=== PATIENT | male | born 1985 | race Two or more races ===

== ENCOUNTER 2016-06-14 05:36 | Day surgery (SDC) | payer OTHER ==
[2016-06-05 15:29] VITALS: BMI 28.3
--- NOTE | 2016-06-14 09:19 | HP ---
[facility]ellite [facility] - Chief Complaint Chief Complaint: left knee pain - Past Medical History Allergies/Adverse Reactions: Allergies Allergy/AdvReac Type Severity Reaction Status Date / Time No Known Allergies Allergy Verified 06/14/16 09:07 - Current Medications Current Medications: Home Medications Medication Instructions Recorded Ibuprofen [Motrin -] 400 mg PO PRN PRN 06/14/16 Oxycodone HCl/Acetaminophen 1 - 2 tab PO Q6H #50 tab MDD 8 06/14/16 [Percocet 5-325 mg Tablet -] Satellite Physical Exam - Physical Examination Vital Signs: Vital Signs Period Temp Pulse Resp BP Sys/Ramirez Pulse Ox Last 24 Hr 98.0 F 66 20 110/68 99 General Appearance: Well Nourished, Well Developed, Alert & Oriented x3 ENT: Clear Lung: Normal air movement Heart: Regular rate & rhythm Extremities: Other (left knee- +swelling,+ ttp, decr rom,nvi) Neurological: Intact, Alert, Oriented Satellite Impression/Plan - Impression/Plan Impression: left knee internal derangement Operative Procedure: left knee arthroscopy Date to be Performed: 06/14/16
[2016-06-14] MEDS ORDERED: LIDOCAINE 1%/EPI 1:100000 (50 ML MULTI DOSE VIAL) ONE (10:58)
[2016-06-14] MEDS ORDERED: BUPIVACAINE HCL/PF 0.5% (5MG/ML) 10 ML VIAL ONE (10:58)
[2016-06-14] MEDS ORDERED: LIDOCAINE HCL/PF 2% SDV 5ML VIAL ONE (11:06)
[2016-06-14] MEDS ORDERED: MIDAZOLAM HCL 2 MG/2 ML SINGLE DOSE VIAL ONE ×2 (11:07)
[2016-06-14] MEDS ORDERED: PROPOFOL 20 ML ONE (11:07)
[2016-06-14] MEDS ORDERED: ceFAZolin SODIUM 1 GM VIAL IVPB ONE (11:17)
[2016-06-14] MEDS ORDERED: LIDOCAINE 1%/EPI 1:100000 (50 ML MULTI DOSE VIAL) INF ONE (11:22)
[2016-06-14] MEDS ORDERED: BUPIVACAINE HCL/PF 0.5% (5MG/ML) 10 ML VIAL IJ ONE (11:22)
[2016-06-14] MEDS ORDERED: ceFAZolin SODIUM 1 GM VIAL ONE (11:23)
[2016-06-14] MEDS ORDERED: DEXAMETHASONE SOD PHOSPHATE 4 MG/1 ML VIAL ONE (11:43)
--- NOTE | 2016-06-14 11:46 | OP ---
Operative Note - Note: Operative Date: 06/14/16 ([facility]) Pre-Operative Diagnosis: left knee internal derangement Operation: left knee arthroscopy with PLM Post-Operative Diagnosis: Same as Pre-op Surgeon: Dominic Morales Anesthesiologist/WATCH ADJUSTER: Donnlel Rodriguez Anesthesia: General, Local Specimens Removed: shavings Estimated Blood Loss (mls): 5 Operative Report Dictated: Yes
[2016-06-14] MEDS ORDERED: oxyCODONE HCL 5 MG TABLET PO PRN (12:00)
[2016-06-14] MEDS ORDERED: LACTATED RINGERS SOLUTION 1,000 ML IV SCH (12:00)
[2016-06-14] MEDS ORDERED: ONDANSETRON 4 MG/2 ML VIAL IVPUSH PRN (12:00)
[2016-06-14] MEDS ORDERED: KETOROLAC TROMETHAMINE 30 MG/1 ML VIAL ONE (12:09)
[2016-06-14] MEDS ORDERED: KETOROLAC TROMETHAMINE 30 MG/1 ML VIAL IVPUSH ONE (12:15)
[2016-06-14 12:18] VITALS: TEMP 97.7
[2016-06-14] MEDS ORDERED: oxyCODONE HCL 5 MG TABLET PO ONE (12:55)
[2016-06-14] MEDS ORDERED: oxyCODONE HCL 5 MG TABLET ONE (12:56)
[2016-06-14 15:01] VITALS: BP 100/64; PULSE 68
--- NOTE | 2016-06-15 11:08 | OP ---
DATE OF OPERATION: 06/14/2016 PREOPERATIVE DIAGNOSIS: Left lateral meniscal tear. POSTOPERATIVE DIAGNOSIS: Left lateral meniscal tear. PROCEDURE: Arthroscopy of left knee with partial lateral meniscectomy. SURGICAL ATTENDING: Dominic Morales MD ANESTHESIA: General LMA. CLOSURE: 4-0 nylon COMPLICATIONS: None. CONDITION: To recovery in stable condition. DESCRIPTION OF OPERATIVE PROCEDURE: The patient was taken to the operating room on June 14, 2016. General anesthesia with LMA was administered by the anesthesiologist. IV Kefzol was administered prophylactically prior to the case. Left lower extremity was prepped and draped in the usual sterile fashion. Superolateral, mediolateral, and infrapatellar portal sites were infiltrated with 1% Xylocaine with epinephrine. Superolateral portal was made with a 15-blade followed by blunt trocar. The knee was aspirated, then inflated with a cocktail of 10 mL of 1% Xylocaine, 10 mL of 0.5% Marcaine, 20 mL of arthroscopic saline. The medial and lateral infrapatellar portals then were made with 15-blade followed by blunt trocar. The scope was placed in the lateral infrapatellar portal and up into the suprapatellar pouch. Pouch was visualized to be clean. The medial and lateral gutters were visualized to be clean. The undersurface of the patella and trochlea was found to be intact. Initially, we were potentially going to do a lateral release as patient was having lateral joint line pain and lateral retinacular pain, but looking at the articular cartilage and the trochlea, it did not appear that it was overly tight, nor was there any abraded cartilage in this region, and thus a lateral release was not performed. With valgus stress on the knee, medial compartment was entered. The medial meniscus was visualized, found to be intact. The medial femoral condyle was run and found to be intact, as was the medial tibial plateau. At 90 degrees, the ACL was visualized, found to be intact. In the figure 4 position, the lateral compartment was entered. The lateral meniscus was visualized and probed, found to have a complex tear of it entire posterior horn with flipped-up portions both posteriorly and anteriorly. The entire posterior horn from its midsurface posterior was debrided. The anterior horn was found to be completely intact and was left in situ. The lateral femoral condyle was found to be intact, as was the lateral tibial plateau. The knee was irrigated with copious amounts of irrigation. Portals were closed with 4-0 nylon. Prior to closure, 20 mL of 0.5% Marcaine was infused into the knee for postoperative analgesia. Also, prior to closure, the ArthroCare wand was used to cauterize any potential bleeders on the lateral joint line near any of the branches of the lateral geniculate. Pressure dressing was placed over the knee, patient awakened from anesthesia and transferred to recovery in stable condition. No complications. Estimated blood loss negligible. Smita TUCKER/[id number]
--- NOTE | 2016-06-15 16:51 | PATH ---
Surgical Pathology Report Patient Name: [place] LOW [facility]. Rec. #: [id number] /Age/Gender: 1985 (Age: 30) / M Account: [id number] Location: [facility] SURGICAL Taken: 06/14/2016 Received: 06/14/2016 Reported: 06/15/2016 Physicians: Dominic Morales M.D. Specimen(s) Received LEFT KNEE SHAVINGS Clinical History Left knee internal derangement Final Diagnosis KNEE, LEFT, ARTHROSCOPIC SHAVING: FIBROCARTILAGE WITH MYXOID DEGENERATIVE CHANGES, ALONG WITH PORTIONS OF SYNOVIUM AND HYALINE CARTILAGE. Electronically Signed Hal Bowles M.D. Gross Description Received in formalin, labeled "left knee shavings," is a 4.0 x 3.3 x 0.5 cm. aggregate of liao-yellow soft tissue fragments. A shared services representative portion is submitted in one cassette. /06/14/201606/14/2016
== END 2016-06-14 15:04 | disposition home or self-care (01) ==
LOC: JASU-SURG 05:36
PROVIDERS: ATTEND Orthopaedic Surgery
PROC: 0SBD4ZZ Excision of Left Knee Joint, Percutaneous Endoscopic Approach (ICD-10-PCS; principal; 2016-06-14 10:15)
DX: S83.282A Other tear of lateral meniscus, current injury, left knee, initial encounter (principal); X58.XXXA Exposure to other specified factors, initial encounter; Y93.9 Activity, unspecified; Y92.9 Unspecified place or not applicable; Y99.9 Unspecified external cause status
CPT/HCPCS: 88304-TC; 94760